=== PATIENT | female | born 1995 | race African-American/Black ===

== ENCOUNTER 2020-09-09 13:24 | Emergency (ER) | payer MEDICAID ==
[~2020-09-09] VITALS: Ht 154.9 cm; Wt 51.0 kg
[2020-09-09] MEDS ORDERED: ONDANSETRON HCL 4MG/2ML INJ IV ONE (14:15)
[2020-09-09] MEDS ORDERED: MORPHINE SULFATE 4 MG/ML CPJ (NOT FOR IM USE) IV ONE (14:15)
[2020-09-09] MEDS ORDERED: FAMOTIDINE 20MG/2ML VIAL IV ONE (14:15)
[2020-09-09 14:25] LABS: BASOPHILS % 0.1 % (0.0-2.0); EOSINOPHILS % 0.1 % (0.0-5.0); HEMATOCRIT. 25.4 % (36.0-48.0); HEMOGLOBIN. 8.5 g/dL (12.0-16.0); LYMPHOCYTES % 9.1 % (20.0-50.0); MEAN CORPUSCULAR HEMOGLOBIN 28.1 pg (28.0-32.0); MEAN CORPUSCULAR VOLUME 84.4 fL (81.0-99.0); MEAN PLATELET VOLUME 8.8 fl (7.4-10.4); MONOCYTES % 3.6 % (2.0-8.0); NEUTROPHILS % 87.1 % (40.0-76.0); PLATELET 278 x1000/uL (130-400); RED BLOOD CELL COUNT 3.01 mill/uL (4.2-5.4); RED CELL DISTRIBUTION WIDTH 17.2 % (11.6-14.6)
[2020-09-09 14:31] LABS: CHLORIDE 111 mEq/L (98-107)
[2020-09-09] MEDS ORDERED: METOCLOPRAMIDE HCL 10MG/2ML VIAL IV NR (15:45)
[2020-09-09] MEDS ORDERED: SODIUM CHLORIDE 0.9% 1,500 ML IV ONE (15:45)
[2020-09-09] MEDS ORDERED: DEXAMETHASONE 10 MG/ML VIAL IV NR (16:00)
[2020-09-09 16:33] LABS: CLARITY URINE CLEAR (CLEAR); COLOR URINE YELLOW (YELLOW); KETONES URINE 4+ (NEGATIVE); LEUKOCYTE ESTERASE URINE NEGATIVE (NEGATIVE); NITRITE URINE NEGATIVE (NEGATIVE); OCCULT BLOOD URINE NEGATIVE (NEGATIVE); PH URINE 7.5 (4.5-8.0); PROTEIN URINE TRACE (NEGATIVE); SPECIFIC GRAVITY URINE 1.025 (1.005-1.030); UROBILINOGEN URINE 0.2 E.U./dL (0.2-1.0)
[2020-09-09] MEDS ORDERED: FAMO-123 PO (20:25)
[2020-09-09] MEDS ORDERED: ONDA4TAB11 PO (20:26)
[2020-09-09 20:42] VITALS: BP 120/67
== END 2020-09-09 20:44 | disposition home or self-care (01) ==
LOC: ER 13:24
DX: O21.1 Hyperemesis gravidarum with metabolic disturbance (principal); Z3A.01 Less than 8 weeks gestation of pregnancy
CPT/HCPCS: 36415; 76700; 76801; 80048; 81003; 81025; 85025; 96374; 96375; 99285; J1100; J2270; J2405; J2765; J3490